=== PATIENT | male | born 1970 | race Caucasian/White ===

== ENCOUNTER → 2018-11-27 | Outpatient (CLI) | payer OTHER ==
--- NOTE | 2018-11-27 08:57 | US ---
EXAMINATION TYPE: US abdomen complete DATE OF EXAM: 11/27/2018 COMPARISON: NONE CLINICAL HISTORY: R10.13 Epigastric pain. Patient denies epigastric pain, rather c/o ventral abdomina l outpouching with head elevation and chin down maneuver as if getting ready to sit upright (possible ventral hernia)?; fatty liver per patient as takes cholesterol lowering med. and antihypertensive me dications. EXAM MEASUREMENTS: Liver Length: 15.1 cm Gallbladder Wall: 0.2 cm CBD: 0.4 cm Spleen: 9.3 cm Right Kidney: 10.2 x 4.9 x 4.0 cm Left Kidney: 10.3 x 6.8 x 5.0 cm Pancreas: Tail obscured by overlying bowel gas Liver: fatty as is hyperechoic to right renal cortex, attenuated posteriorly, and both fatty focal s paring seen at gallbladder fossa = 0.5 x 0.9 x 0.6cm. Gallbladder: wnl Evidence for sonographic Ugalde's sign: no CBD: wnl Spleen: wnl Right Kidney: No hydronephrosis or masses seen Left Kidney: No hydronephrosis or masses seen Upper IVC: wnl Abd Aorta: wnl Ventral abdominal wall: no disruption is noted of abdominal wall fascia in neutral or in head up posi tion where patient notes mid and lower abdominal outpouching. IMPRESSION: 1. Sonographic findings most compatible with hepatic steatosis overall appearing moderate in degree w ith probable focal fatty sparing near the gallbladder fossa. 2. At the patient's indicated area of concern no discrete fascial disruption is seen to indicate vent ral hernia. CT with Valsalva could be performed for confirmation if there is further clinical concern .
== END | disposition home or self-care (01) ==
LOC: RADUSWWP 07:45
PROVIDERS: ATTEND Family Medicine
DX: R10.13 Epigastric pain (principal)
CPT/HCPCS: 76700

== ENCOUNTER → 2018-12-30 | Day surgery (SDC) | payer OTHER ==
[2018-12-26 14:23] VITALS: BMI 31.1
[~2018-12-30] MED LIST: LACTATED RINGERS 1,000 ML IV SCH; LIDOCAINE 1% 20 ML VIAL (10MG/ML) FOR IV START INTRADERMA PRN; LIDOCAINE 1% INJ 10MG/ML (20 ML MDV) ONE; PROPOFOL 10 MG/ML 20 ML VIAL IV ONE
[2018-12-30 11:28] VITALS: TEMP 97.1
--- NOTE | 2018-12-30 11:42 | P.GSHP ---
History of Present Illness H&P Date: 12/30/18 Chief Complaint: GERD, screening colonoscopy This is a 48-year-old male who presents today for EGD and screening colonoscopy. Patient has had issues with GERD. He has been taking antireflux medications for several years. He's had some mild dysphagia. He's never had a colonoscopy. Past Medical History Past Medical History: GERD/Reflux, Hyperlipidemia, Hypertension History of Any Multi-Drug Resistant Organisms: None Reported Additional Past Surgical History / Comment(s): EGD Past Anesthesia/Blood Transfusion Reactions: No Reported Reaction Smoking Status: Former smoker - Past Family History Mother Family Medical History: Cancer Father Family Medical History: Cancer Medications and Allergies Home Medications Medication Instructions Recorded Confirmed Type Aspirin [Adult Low Dose Aspirin EC] 81 mg PO DAILY 12/26/18 12/26/18 History Esomeprazole Magnesium [NexIUM] 20 mg PO DAILY 12/26/18 12/30/18 History Losartan Potassium 100 mg PO HS 12/26/18 12/30/18 History Metoprolol.. 25 mg PO DAILY 12/26/18 12/30/18 History Simvastatin [Zocor] 40 mg PO HS 12/26/18 12/30/18 History Allergies Allergy/AdvReac Type Severity Reaction Status Date / Time chicken derived Allergy Anaphylaxis Verified 12/26/18 14:16 levofloxacin [From Levaquin] Allergy Rash/Hives Verified 12/26/18 14:16 Poultry [[place]] Allergy Anaphylaxis Verified 12/26/18 14:16 Surgical - Exam Vital Signs Temp Pulse Resp BP Pulse Ox 97.1 F L 83 16 158/93 94 L 12/30/18 11:27 12/30/18 11:27 12/30/18 11:27 12/30/18 11:27 12/30/18 11:27 - General well developed, well nourished, no distress - Eyes PERRL - ENT normal pinna - Neck no masses - Respiratory normal expansion - Cardiovascular Rhythm: regular - Abdomen Abdomen: soft, non tender Assessment and Plan Assessment: GERD. We'll perform EGD. We'll also perform screening colonoscopy.
--- NOTE | 2018-12-30 11:54 | P.OP ---
Date of Procedure: 12/30/18 Preoperative Diagnosis: . GERD Screening colonoscopy Postoperative Diagnosis: Antral gastritis Small hiatal hernia Mild esophagitis Procedure(s) Performed: EGD Colonoscopy Anesthesia: MAC Surgeon: Didier Castillo Pathology: other (Antrum, esophagus) Condition: stable Disposition: PACU Description of Procedure: The patient's placed on the endoscopy table lateral position. He received IV sedation. The gastroscope placed oropharynx passed in the esophagus into the stomach. Scope then placed through the pylorus. The first and second portion of the duodenum appeared normal. Scope was then brought back the antrum and this appeared mildly inflamed. A biopsies performed. The scope was unretr oflexed and remainder stomach appeared normal. There was a small hiatal hernia. The GE junction was at 38 cm. The distal esophagus appeared mildly inflamed. There is no evidence of any inflammatory webs or strictures. The distal esophagus was biopsied. The proximal esophagus appeared normal. Scope was withdrawn for patient. Next digital rectal exam was performed. Digital rectal examination was performed which revealed no abnormalities. The prostate was symmetrical without nodules. Flexible colonoscope was then placed in the patient's anus and passed throughout the entire colon. The ileocecal valve was visualized. The cecum, ascending, transverse, descending and sigmoid colon were normal. The rectum was normal as well. There were no masses, polyps or diverticula noted in the entire colon.
[2018-12-30 12:33] VITALS: BP 118/84; PULSE 82; RESP 18
--- NOTE | 2018-12-30 14:56 | NM ---
EXAMINATION TYPE: NM hepatobiliary w CCK DATE OF EXAM: 12/30/2018 COMPARISON: Ultrasound abdomen 11/27/2018 HISTORY: Indigestion, gastroesophageal reflux disease, epigastric pain TECHNIQUE: After the intravenous administration of 4.4 mCi Tc 99m Mebrofenin hepatobiliary scintigrap hy is performed. Immediate images post injection. FINDINGS: There is satisfactory initial accumulation of tracer by the liver. The gallbladder is visualized wit hin 10 minutes. The small bowel activity is noted on delayed images. At one hour CCK was administer ed, patient was injected with 1.9 mcg of Kinevac, and gallbladder ejection fraction is calculated at 91 %, above the upper limit of normal range. Therefore there is no scintigraphic evidence of cystic or common bile duct obstruction to suggest acute cholecystitis or gallbladder dyskinesia. IMPRESSION: Findings could represent hyperkinesis of the gallbladder
== END | disposition home or self-care (01) ==
LOC: ORWHC2ENDO 11:08
PROVIDERS: ATTEND Surgery
DX: Z12.11 Encounter for screening for malignant neoplasm of colon (principal); K29.50 Unspecified chronic gastritis without bleeding; K20.0 Eosinophilic esophagitis; K44.9 Diaphragmatic hernia without obstruction or gangrene; K21.9 Gastro-esophageal reflux disease without esophagitis; I10 Essential (primary) hypertension; E78.5 Hyperlipidemia, unspecified; Z87.891 Personal history of nicotine dependence; Z79.82 Long term (current) use of aspirin; Z79.899 Other long term (current) drug therapy; Z88.1 Allergy status to other antibiotic agents; Z91.018 Allergy to other foods
CPT/HCPCS: 88305; 78227; 43239; A9537; J2805; J2001; J2704; G0121

== ENCOUNTER → 2019-01-07 | Outpatient (CLI) | payer OTHER ==
[2019-01-07 18:14] LABS: Basophils # (A) 0.1 k/uL (0-0.2); Basophils % (A) 1 %; Eosinophils # (A) 0.2 k/uL (0-0.7); Eosinophils % (A) 2 %; HCT 42.2 % (39.0-53.0); HGB 14.5 gm/dL (13.0-17.5); Lymphocytes # (A) 2.8 k/uL (1.0-4.8); Lymphocytes % (A) 30 %; MCHC 34.3 g/dL (31.0-37.0); MCV 84.5 fL (80.0-100.0); Monocytes # (A) 0.6 k/uL (0-1.0); Monocytes % (A) 6 %; Neutrophils # (A) 5.5 k/uL (1.3-7.7); Neutrophils % (A) 59 %; Platelet Count 220 k/uL (150-450); RBC 4.99 m/uL (4.30-5.90); RDW 13.8 % (11.5-15.5); WBC 9.4 k/uL (3.8-10.6)
== END | disposition home or self-care (01) ==
LOC: LABPAT 17:08
PROVIDERS: ATTEND Surgery
DX: Z01.818 Encounter for other preprocedural examination (principal); Z01.812 Encounter for preprocedural laboratory examination; K21.0 Gastro-esophageal reflux disease with esophagitis; D64.9 Anemia, unspecified
CPT/HCPCS: 85025; 86850; 86900; 86901; 93005

== ENCOUNTER 2019-01-16 07:53 | Observation (INO) | payer OTHER ==
[2019-01-07 18:14] LABS: Basophils # (A) 0.1 k/uL (0-0.2); Basophils % (A) 1 %; Eosinophils # (A) 0.2 k/uL (0-0.7); Eosinophils % (A) 2 %; HCT 42.2 % (39.0-53.0); HGB 14.5 gm/dL (13.0-17.5); Lymphocytes # (A) 2.8 k/uL (1.0-4.8); Lymphocytes % (A) 30 %; MCHC 34.3 g/dL (31.0-37.0); MCV 84.5 fL (80.0-100.0); Monocytes # (A) 0.6 k/uL (0-1.0); Monocytes % (A) 6 %; Neutrophils # (A) 5.5 k/uL (1.3-7.7); Neutrophils % (A) 59 %; Platelet Count 220 k/uL (150-450); RBC 4.99 m/uL (4.30-5.90); RDW 13.8 % (11.5-15.5); WBC 9.4 k/uL (3.8-10.6)
[~2019-01-16 07:53] MED LIST changes: +DEXAMETHASONE SOD PHOSPHATE 10 MG/ML 1 ML VIAL IV ONE; +HEPARIN SODIUM,PORCINE 5,000 UNIT/ML 1 ML VIAL SQ ONE; -LACTATED RINGERS 1,000 ML IV SCH; -LIDOCAINE 1% INJ 10MG/ML (20 ML MDV) ONE; +MIDAZOLAM 2 MG/2 ML VIAL IV PRN; +ONDANSETRON 4 MG/2 ML VIAL IVP ONE; -PROPOFOL 10 MG/ML 20 ML VIAL IV ONE; +SCOPOLAMINE 1.5MG/72HR PATCH TRANSDERM ONE; +ceFAZolin IN SWFI 2 GM/20 ML SYRINGE IVP ONE
[2019-01-16] MEDS: LACTATED RINGERS 1,000 ML IV SCH (08:53)
--- NOTE | 2019-01-16 10:06 | P.GSHP ---
History of Present Illness H&P Date: 01/16/19 Chief Complaint: GERD, right quadrant pain This is a 48-year-old male sex points of GERD. Patient also second with her quadrant pain. His recent HIDA scan shows abnormal ejection fraction consistent with chronic cholecystitis.The patient has had long-standing problems with reflux esophagitis. The patient underwent recent EGD is found have evidence of esophagitis. Patient has been well informed on the procedure of laparoscopic Aashish fundoplication. The patient is aware the risk of the conversion to the open procedure, risk of injury to the stomach, liver and spleen. The patient is also a risk of recurrent GERD and dysphagia symptoms. The patient understands there is a postoperative diet of full liquids for 2 weeks after surgery. Patient will undergo laparoscopic Aashish fundoplication and laparoscopic cholecystectomy today. Past Medical History Past Medical History: GERD/Reflux, Hyperlipidemia, Hypertension Additional Past Medical History / Comment(s): hiatal hernia, History of Any Multi-Drug Resistant Organisms: None Reported Additional Past Surgical History / Comment(s): Colonoscopy, EGD Past Anesthesia/Blood Transfusion Reactions: No Reported Reaction Past Psychological History: No Psychological Hx Reported Smoking Status: Former smoker Past Alcohol Use History: Occasional Additional Past Alcohol Use History / Comment(s): QUIT SMOKING 2002, smoked for 10 yrs, 1 pack/week Past Drug Use History: None Reported - Past Family History Mother Family Medical History: Cancer Father Family Medical History: Cancer Medications and Allergies Home Medications Medication Instructions Recorded Confirmed Type Aspirin [Adult Low Dose Aspirin EC] 81 mg PO DAILY 12/26/18 01/09/19 History Esomeprazole Magnesium [NexIUM] 20 mg PO DAILY 12/26/18 01/09/19 History Losartan Potassium 100 mg PO HS 12/26/18 01/09/19 History Simvastatin [Zocor] 40 mg PO HS 12/26/18 01/09/19 History Metoprolol Tartrate 25 mg PO QA 01/09/19 01/09/19 History [place]-3 Fatty Acids [[place]-3] 1,000 mg PO DAILY 01/09/19 01/09/19 History Allergies Allergy/AdvReac Type Severity Reaction Status Date / Time chicken derived Allergy Anaphylaxis Verified 01/09/19 15:43 levofloxacin [From Levaquin] Allergy Rash/Hives Verified 01/09/19 15:43 Poultry [[place]] Allergy Anaphylaxis Verified 01/09/19 15:43 Surgical - Exam Vital Signs Temp Pulse Resp BP Pulse Ox 97.1 F L 58 L 18 145/83 96 01/16/19 08:51 01/16/19 08:51 01/16/19 08:51 01/16/19 08:51 01/16/19 08:51 - General well developed, well nourished, no distress - Eyes PERRL - ENT normal pinna - Neck no masses - Respiratory normal expansion - Cardiovascular Rhythm: regular - Abdomen Abdomen: soft, non tender Results - Labs 01/07/19 17:38 - Imaging Additional studies: HIDA scan, elevated ejection fraction 91% Assessment and Plan Assessment: GERD Dysfunction We will perform laparoscopic dislocation and laparoscopic cholecystectomy.
[2019-01-16] MEDS ORDERED: SUCCINYLCHOLINE CHLORIDE 100 MG/5 ML SYR IV ONE (10:23)
[2019-01-16] MEDS ORDERED: LIDOCAINE 1% INJ 10MG/ML (20 ML MDV) ONE (10:23)
[2019-01-16] MEDS ORDERED: fentaNYL (PF) 50 MCG/ML 2 ML AMP ONE (10:23)
[2019-01-16] MEDS ORDERED: PROPOFOL 10 MG/ML 20 ML VIAL IV ONE (10:23)
[2019-01-16] MEDS ORDERED: ePHEDrine SULFATE/0.9% NACL/PF 50 MG/5 ML SYRINGE IV ONE (10:23)
[2019-01-16] MEDS ORDERED: MIDAZOLAM 2 MG/2 ML VIAL ONE (10:23)
[2019-01-16] MEDS ORDERED: GLYCOPYRROLATE 0.2 MG/ML 2 ML VIAL ONE (10:23)
[2019-01-16] MEDS ORDERED: NEOSTIGMINE 1 MG/ML 10 ML VIAL ONE (10:23)
[2019-01-16] MEDS ORDERED: ROCURONIUM BROMIDE 10 MG/ML 10 ML VIAL IV ONE (10:23)
[2019-01-16] MEDS ORDERED: KETOROLAC 30 MG/ML 1 ML VIAL ONE (10:23)
[2019-01-16] MEDS ORDERED: BUPIVACAIN-EPI 0.25%-1:200,000 30 ML VIAL SQ ONE (10:55)
[2019-01-16] MEDS ORDERED: LACTATED RINGERS 1,000 ML IV ONE (11:34)
--- NOTE | 2019-01-16 11:40 | P.OP ---
Date of Procedure: 01/16/19 Preoperative Diagnosis: Cholecystitis GERD Postoperative Diagnosis: Cholecystitis GERD Procedure(s) Performed: Have her scalp in this location Laparoscopic cholecystectomy Anesthesia: ROSIO Surgeon: Didier Castillo Estimated Blood Loss (ml): 10 Pathology: other (Gallbladder) Condition: stable Disposition: PACU Description of Procedure: Em patient was placed on the operating table in the supine position. The patient received general anesthesia. And was placed in dorsal lithotomy position. The patient was prepped and draped in the usual sterile fashion. The skin incision sites were anesthetized with 1% local Xylocaine. The skin was incised in the left periumbilical area and then using a blade less 5 mm trocar under direct visualization panel cavity was entered. After adequate insufflation the laparoscope was then placed into the peritoneal cavity. Next a 5 mm trochars placed in the right epigastric position. Another 5 millimeter trocar the right lateral position. Another 5 millimeter trocar in the left lateral position a 5 mm trocar is placed in the left epigastric position. And then the initial 5 mm trocar was exchanged for a 10 mm trocar. The left lateral lobe liver was retracted. The hernia was seen. The crural defect was then dissected using the Harmonic scissors device. A 360 crural dissection was performed the esophagus stomach was reduced back into the peritoneal Cavity. The crural defect was then closed using 2-0 Ethibond suture. Next the fundus of the stomach was mobilized using the Supai scissors device. and then a 58- American bougie dilator was placed oropharynx passed into the esophagus and stomach the fundal plication wrap was then performed by grasping the fundus posteriorly and bringing it around the esophagus and stomach fundoplication was then performed using 2-0 Ethibond suture. Care was taken that the fundal location rested over top of the intra-abdominal esophagus. There was no injury seen to the stomach or esophagus. The dilator was then withdrawn. The abdomen was irrigated there is no bleeding seen. . A 8 mm trocar was placed in the epigastric position. A 5 mm trocar was placed in the right periumbilical area. Patient placed in the right side up had up position. The gallbladder was grasped in the fundus and infundibulum. Traction on the gallbladder was placed in the lateral and the cephalad positions. The triangle of Calot was visualized.. The cystic duct was bluntly dissected until the union of the cystic duct and common bile duct was seen. A critical view of safety was achieved. The cystic duct was then divided and sealed with the Harmonic scissors. A PDS Endoloop was then placed throughout the cystic duct stump. The cystic artery divided and sealed with the Harmonic scissors. The gallbladder was then removed from the liver bed using Harmonic scissors. The gallbladder was then extracted through the epigastric port site. Operative field was checked for any bleeding spots and Harmonic scissors was used to coagulate the liver bed. The abdomen was irrigated. The trocars were removed. The trochars were then withdrawn and then skin incision sites were closed using 3-0 Monocryl suture Steri-Strips are applied. Patient thought procedure well and sent to recovery room in stable condition.en
[2019-01-16] MEDS: HYDROmorphone 0.5 MG/0.5 ML SYRINGE IVP PRN ×3 (12:10→12:41)
[2019-01-16 13:14] VITALS: BMI 31.1
--- NOTE | 2019-01-16 16:02 | FL ---
EXAMINATION TYPE: FL esophagus cervic/pharynx DATE OF EXAM: 01/16/2019 CLINICAL HISTORY: Status post Aashish fundoplication. Postoperative evaluation. TECHNIQUE: Limited esophagram is performed utilizing 40 oz of Isovue-370. A total of 1.15 minutes of fluoroscopic time was utilized during procedure. 16 fluoroscopic images were saved. FINDINGS: The patient swallowed contrast without difficulty or delay. Esophageal peristalsis and mo tility are within normal limits. There is moderate to severe delayed flow of contrast along the diaph ragmatic hiatus into the stomach, there is no evidence of contrast extravasation to suggest leak. No persistent hiatal hernia is seen. Patient remains asymptomatic. IMPRESSION: Moderate to severe obstruction at the gastroesophageal junction. No evidence of leak stat us post Ramakrishna fundoplication surgery earlier today.
[2019-01-16] MEDS: D5-0.45% NACL WITH KCL 20MEQ/L 1,000 ML IV SCH ×2 (16:23→23:08)
[2019-01-16] MEDS: ONDANSETRON 4 MG/2 ML VIAL IVP PRN (16:33)
[2019-01-16] MEDS: HYDROmorphone 1 MG/ML 1 ML SYRINGE IVP PRN (16:33)
[2019-01-16] MEDS: DEXAMETHASONE SOD PHOSPHATE 10 MG/ML 1 ML VIAL IV SCH ×2 (17:35→23:08)
[2019-01-17] MEDS: HYDROmorphone 1 MG/ML 1 ML SYRINGE IVP PRN (02:53)
[2019-01-17] MEDS: ONDANSETRON 4 MG/2 ML VIAL IVP PRN (02:55)
[2019-01-17] MEDS: D5-0.45% NACL WITH KCL 20MEQ/L 1,000 ML IV SCH (02:56)
[2019-01-17] MEDS: DEXAMETHASONE SOD PHOSPHATE 10 MG/ML 1 ML VIAL IV SCH (05:28)
[2019-01-17] MEDS: LACTATED RINGERS 1,000 ML IV SCH (05:29)
[2019-01-17 07:34] VITALS: BP 117/70; PULSE 106; RESP 16; TEMP 97.5
[2019-01-17] MEDS ORDERED: HYDROcodone/APAP 5-325MG 1 EACH TAB PO PRN (08:21)
[2019-01-17] MEDS ORDERED: ENOXAPARIN 40 MG/0.4 ML SYRINGE SQ SCH (09:00)
--- NOTE | 2019-01-17 13:53 | P.DS ---
Providers Date of admission: 01/16/19 20:54 Expected date of discharge: 01/17/19 Attending physician: Didier Castillo Primary care physician: Cook Hospital Course: 48-year-old male who underwent laparoscopic cholecystectomy and Aashish fundoplication on 01/16/[address] Castillo. Patient is doing well postoperatively without any immediate complications. Patient is tolerating liquid diet without difficulty. Pain is controlled on oral medications. Vital signs stable. Patient was deemed stable for discharge home today. He is to follow up on an outpatient basis. Patient verbalized understanding of 2 week full liquid diet. Please see EMR for further hospital course details. Discharge diagnosis 1. GERD, status post laparoscopic Aashish fundoplication 2. Cholecystitis, status post laparoscopic cholecystectomy Nurse practitioner note has been reviewed by physician. Signing provider agrees with the documented findings, assessment, and plan of care. Plan - Discharge Summary Discharge Rx Participant: No New Discharge Prescriptions: New Hydrocodone/Acetaminophen [[place] 5-325] 1 tab PO Q6HR PRN 3 Days #12 tab PRN Reason: Pain No Action Simvastatin [Zocor] 40 mg PO HS Esomeprazole Magnesium [NexIUM] 20 mg PO DAILY Losartan Potassium 100 mg PO HS Aspirin [Adult Low Dose Aspirin EC] 81 mg PO DAILY Metoprolol Tartrate 25 mg PO QAM [place]-3 Fatty Acids [[place]-3] 1,000 mg PO DAILY Discharge Medication List Aspirin [Adult Low Dose Aspirin EC] 81 mg PO DAILY 12/26/18 [History] Esomeprazole Magnesium [NexIUM] 20 mg PO DAILY 12/26/18 [History] Losartan Potassium 100 mg PO HS 12/26/18 [History] Simvastatin [Zocor] 40 mg PO HS 12/26/18 [History] Metoprolol Tartrate 25 mg PO QAM 01/09/19 [History] [place]-3 Fatty Acids [[place]-3] 1,000 mg PO DAILY 01/09/19 [History] Hydrocodone/Acetaminophen [[place] 5-325] 1 tab PO Q6HR PRN 3 Days #12 tab 01/17/19 [Rx] Follow up Appointment(s)/Referral(s): Didier Castillo MD [STAFF PHYSICIAN] - 01/30/19 2:15 pm Patient Instructions/Handouts: *[facility] - Laparoscopic Cholecystectomy Discharge Instructions, *Sur[facility] - ([facility]) Lap Aashish Fundiplication Post-Op Instructions Activity/Diet/Wound Care/Special Instructions: No driving while taking [place] No lifting over 10 pounds You may shower. No soaking or tub baths Very light activity until you are reevaluated at your follow up appointment with your surgeon Full liquid diet for two weeks Discharge Disposition: HOME SELF-CARE
== END 2019-01-17 10:39 | disposition home or self-care (01) ==
LOC: OR 07:53 → 4SSUR 11:46 → OR 21:17
PROVIDERS: ADMIT Surgery; ATTEND Surgery
DX: K21.0 Gastro-esophageal reflux disease with esophagitis (principal); K81.1 Chronic cholecystitis; I10 Essential (primary) hypertension; K44.9 Diaphragmatic hernia without obstruction or gangrene; E78.5 Hyperlipidemia, unspecified; Z87.891 Personal history of nicotine dependence; Z79.82 Long term (current) use of aspirin; Z79.899 Other long term (current) drug therapy; Z88.1 Allergy status to other antibiotic agents; Z91.018 Allergy to other foods; Z80.9 Family history of malignant neoplasm, unspecified
CPT/HCPCS: 43280; 47562; 96372; 86900; 86901; 88304; 85025; 86850; 74210; 93005; G0378 ×2; J2250; J1644; J1100 ×2; J2710; J2405 ×2; J2001; J1650; J3010; J1885; J1170 ×3; J0330; J2704; J0690; Q9967

== ENCOUNTER 2019-11-30 12:58 | Emergency (ER) | payer OTHER ==
[2019-11-30] MEDS ORDERED: ONDANSETRON 4 MG/2 ML VIAL IVP STA (13:26)
[2019-11-30] MEDS ORDERED: KETOROLAC 30 MG/ML 1 ML VIAL IVP STA (13:26)
[2019-11-30] MEDS ORDERED: SODIUM CHLORIDE 0.9% 2,000 ML IV STA (13:26)
[2019-11-30 13:49] LABS: Basophils % (A) 0 %; Eosinophils # (A) 0.1 k/uL (0-0.7); Eosinophils % (A) 1 %; HCT 46.1 % (39.0-53.0); HGB 15.9 gm/dL (13.0-17.5); Hyperchromasia Slight; Lymphocytes % (A) 9 %; MCH 29.4 pg (25.0-35.0); MCHC 34.5 g/dL (31.0-37.0); MCV 85.1 fL (80.0-100.0); Mean Platelet Volume 8.3; Monocytes # (A) 0.5 k/uL (0-1.0); Monocytes % (A) 4 %; Neutrophils # (A) 9.4 k/uL (1.3-7.7); Neutrophils % (A) 86 %; Platelet Count 172 k/uL (150-450); RBC 5.41 m/uL (4.30-5.90); RDW 12.3 % (11.5-15.5)
[2019-11-30 14:05] LABS: ALT 28 U/L (4-49); AST 32 U/L (17-59); African American GFR (CKD) >90 (>60 ml/min/1.73 sqM); Albumin 4.4 g/dL (3.5-5.0); Alkaline Phosphatase 86 U/L (38-126); Amylase 46 U/L (30-110); Anion Gap 8 mmol/L; Blood Urea Nitrogen 18 mg/dL (9-20); Calcium 9.5 mg/dL (8.4-10.2); Carbon Dioxide 23 mmol/L (22-30); Chloride 107 mmol/L (98-107); Glucose 169 mg/dL (74-99); Non-African American GFR(CKD) 85 (>60 ml/min/1.73 sqM); Potassium 4.5 mmol/L (3.5-5.1); Sodium 138 mmol/L (137-145); Total Bilirubin 0.9 mg/dL (0.2-1.3); Total Protein 7.1 g/dL (6.3-8.2)
--- NOTE | 2019-11-30 14:17 | CT ---
EXAMINATION TYPE: CT abdomen pelvis wo con DATE OF EXAM: 11/30/2019 COMPARISON: None HISTORY: Left sided flank pain with urination changes. CT DLP: 758.9 mGycm Examination of the solid and hollow viscera is limited given the lack of contrast. FINDINGS: LUNG BASES: No evidence for nodule. No evidence for infiltrate. LIVER/GB: Cholecystectomy clips are noted. No space-occupying hepatic lesion. PANCREAS: No pancreatic mass identified. No inflammatory process seen. SPLEEN: No evidence for splenomegaly. No intrasplenic lesions seen. ADRENALS: No adrenal nodules identified. No evidence for thickening. KIDNEYS: 4.5 mm calculus proximal left ureter just distal to the UPJ resulting in mild left-sided hyd ronephrosis. Mild perinephric stranding noted. No additional nephrolithiasis identified bilaterally. No renal masses seen. BOWEL: Small hiatal hernia noted. Appendix has a normal appearance. No evidence of bowel obstruction. No inflammatory process. Lymph nodes: No evidence for adenopathy greater than 1 cm. Abdominal aorta: Atheromatous changes seen. No evidence for aneurysm. Genital organs: No significant abnormality. Other: No significant abnormality. IMPRESSION: 4.5 mm calculus proximal left ureter just distal to the UPJ resulting in mild left-sided hydronephros is.
[2019-11-30] MEDS ORDERED: TAMSULOSIN 0.4 MG CAP.ER.24H PO STA (14:31)
--- NOTE | 2019-11-30 14:49 | ED ---
Abdominal Pain HPI - General Chief Complaint: Abdominal Pain Stated Complaint: Kidney Stones Time Seen by Provider: 11/30/19 13:18 Source: patient, RN notes reviewed Mode of arrival: ambulatory Limitations: no limitations - History of Present Illness Initial Comments: This a 49-year-old male presents emergency Department chief complaint of severe left flank pain. Patient states the pain wraps around to his abdomen. This was a sudden onset of pain he does admit to slight nausea no vomiting no diarrhea no constipation . Patient states he did a telemedicine visit this morning and he told him that he most likely has a kidney stone and he should proceed to the emergency department. Patient denies any chest pain, shortness breath, fever or chills no dysuria. Nothing really makes the pain feel better or worse. - Related Data Home Medications Medication Instructions Recorded Confirmed Aspirin [Adult Low Dose Aspirin EC] 81 mg PO DAILY 12/26/18 01/16/19 Esomeprazole Magnesium [NexIUM] 20 mg PO DAILY 12/26/18 01/16/19 Losartan Potassium 100 mg PO HS 12/26/18 01/16/19 Simvastatin [Zocor] 40 mg PO HS 12/26/18 01/16/19 Metoprolol Tartrate 25 mg PO QAM 01/09/19 01/16/19 [place]-3 Fatty Acids [[place]-3] 1,000 mg PO DAILY 01/09/19 01/16/19 Previous Rx's Medication Instructions Recorded Hydrocodone/Acetaminophen [[place] 1 tab PO Q6HR PRN 3 Days #12 tab 01/17/19 5-325] Ketorolac [Toradol] 10 mg PO Q8HR #15 tab 11/30/19 Ondansetron Odt [Zofran Odt] 4 mg PO Q8HR PRN #10 tab 11/30/19 Tamsulosin [Flomax] 0.4 mg PO DAILY #7 cap 11/30/19 Allergies Allergy/AdvReac Type Severity Reaction Status Date / Time chicken derived Allergy Anaphylaxis Verified 11/30/19 13:06 levofloxacin [From Levaquin] Allergy Rash/Hives Verified 11/30/19 13:06 Poultry [[place]] Allergy Anaphylaxis Verified 11/30/19 13:06 Review of Systems ROS Statement: Those systems with pertinent positive or pertinent negative responses have been documented in the HPI. ROS Other: All systems not noted in ROS Statement are negative. Past Medical History Past Medical History: GERD/Reflux, Hyperlipidemia, Hypertension Additional Past Medical History / Comment(s): hiatal hernia, kidney stones History of Any Multi-Drug Resistant Organisms: None Reported Additional Past Surgical History / Comment(s): Colonoscopy, EGD Past Anesthesia/Blood Transfusion Reactions: No Reported Reaction Past Psychological History: No Psychological Hx Reported Smoking Status: Former smoker Past Alcohol Use History: Occasional Past Drug Use History: None Reported - Past Family History Mother Family Medical History: Cancer Father Family Medical History: Cancer General Exam Limitations: no limitations General appearance: alert, in no apparent distress Head exam: Present: atraumatic, normocephalic, normal inspection Eye exam: Present: normal appearance, PERRL, EOMI. Absent: scleral icterus, conjunctival injection, periorbital swelling ENT exam: Present: normal exam, normal oropharynx, mucous membranes moist, TM's normal bilaterally Neck exam: Present: normal inspection, full ROM. Absent: tenderness, m eningismus, lymphadenopathy Respiratory exam: Present: normal lung sounds bilaterally. Absent: respiratory distress, wheezes, rales, rhonchi, stridor Cardiovascular Exam: Present: regular rate, normal rhythm, normal heart sounds. Absent: systolic murmur, diastolic murmur, rubs, gallop, clicks GI/Abdominal exam: Present: soft, normal bowel sounds. Absent: distended, tenderness, guarding, rebound, rigid Back exam: Present: CVA tenderness (L). Absent: CVA tenderness (R) Neurological exam: Present: alert, oriented X3, CN II-XII intact Skin exam: Present: warm, dry, intact, normal color. Absent: rash Course Vital Signs 11/30/19 13:06 Temperature 97.4 F L Pulse Rate 63 Respiratory 18 Rate Blood Pressure 168/83 O2 Sat by Pulse 99 Oximetry Medical Decision Making - Medical Decision Making 49-year-old male presented for left flank pain. Patient's found to have 4.5 mm UVJ stone. Patient pain improved after Toradol, fluids and Zofran. Patient discharged with Flomax, Toradol, Zofran, codeine. Return parameters were di scussed. - Lab Data Result diagrams: 11/30/19 13:37 11/30/19 13:37 Lab Results 04/12/20 04/12/20 04/12/20 Range/Units 13:37 13:37 14:45 WBC 11.0 H (3.8-10.6) k/uL RBC 5.41 (4.30-5.90) m/uL Hgb 15.9 (13.0-17.5) gm/dL Hct 46.1 (39.0-53.0) % MCV 85.1 (80.0-100.0) fL MCH 29.4 (25.0-35.0) pg MCHC 34.5 (31.0-37.0) g/dL RDW 12.3 (11.5-15.5) % Plt Count 172 (150-450) k/uL Neutrophils % 86 % Lymphocytes % 9 % Monocytes % 4 % Eosinophils % 1 % Basophils % 0 % Neutrophils # 9.4 H (1.3-7.7) k/uL Lymphocytes # 1.0 (1.0-4.8) k/uL Monocytes # 0.5 (0-1.0) k/uL Eosinophils # 0.1 (0-0.7) k/uL Basophils # 0.0 (0-0.2) k/uL Hyperchromasia Slight Sodium 138 (137-145) mmol/L Potassium 4.5 (3.5-5.1) mmol/L Chloride 107 (98-107) mmol/L Carbon Dioxide 23 (22-30) mmol/L Anion Gap 8 mmol/L BUN 18 (9-20) mg/dL Creatinine 1.02 (0.66-1.25) mg/dL Est GFR (CKD-EPI)AfAm >90 (>60 ml/min/1.73 sqM) Est GFR (CKD-EPI)NonAf 85 (>60 ml/min/1.73 sqM) Glucose 169 H (74-99) mg/dL Calcium 9.5 (8.4-10.2) mg/dL Total Bilirubin 0.9 (0.2-1.3) mg/dL AST 32 (17-59) U/L ALT 28 (4-49) U/L Alkaline Phosphatase 86 (38-126) U/L Total Protein 7.1 (6.3-8.2) g/dL Albumin 4.4 (3.5-5.0) g/dL Amylase 46 (30-110) U/L Lipase 97 (23-300) U/L Urine Color Yellow Urine Appearance Cloudy (Clear) Urine pH 6.0 (5.0-8.0) Ur Specific [place] 1.023 (1.001-1.035) Urine Protein 1+ H (Negative) Urine Glucose (UA) Negative (Negative) Urine Ketones 2+ H (Negative) Urine Blood Large H (Negative) Urine Nitrite Negative (Negative) Urine Bilirubin Negative (Negative) Urine Urobilinogen <2.0 (<2.0) mg/dL Ur Leukocyte Esterase Negative (Negative) Urine RBC >182 H (0-5) /hpf Urine WBC 1 (0-5) /hpf Ur Squamous Epith Cells 1 (0-4) /hpf Urine Bacteria Rare H (None) /hpf Urine Mucus Many H (None) /hpf Disposition Clinical Impression: Left ureteral calculus Disposition: HOME SELF-CARE Condition: Stable Instructions (If sedation given, give patient instructions): Kidney Stones (ED) Additional Instructions: Please return to the Emergency Department if symptoms worsen or any other concerns. Prescriptions: Tamsulosin [Flomax] 0.4 mg PO DAILY #7 cap Ketorolac [Toradol] 10 mg PO Q8HR #15 tab Ondansetron Odt [Zofran Odt] 4 mg PO Q8HR PRN #10 tab PRN Reason: Nausea Is patient prescribed a controlled substance at d/c from ED?: No Referrals: Roger Fine DO [Primary Care Provider] - 1-2 days Raudel Ma MD [STAFF PHYSICIAN] - 1-2 days Time of Disposition: 15:28
[2019-11-30 14:58] LABS: Appearance,Urine Cloudy (Clear); Bacteria,Urine Rare /hpf; Bilirubin,Urine Negative (Negative); Blood,Urine Large (Negative); Color,Urine Yellow; Glucose,Urine (UA) Negative (Negative); Ketones,Urine 2+ (Negative); Leukocyte Esterase,Urine Negative (Negative); Mucus,Urine Many /hpf; Nitrite,Urine Negative (Negative); Protein,Urine 1+ (Negative); RBC,Urine >182 /hpf (0-5); Specific Gravity,Urine 1.023 (1.001-1.035); Squamous Epithelial Cell,Urine 1 /hpf (0-4); Urobilinogen,Urine <2.0 mg/dL (<2.0); WBC,Urine 1 /hpf (0-5)
[2019-11-30] MEDS ORDERED: ACET/COD 300 MG/30 MG STARTER PACK 6 TAB BTL PO STA (15:27)
[2019-11-30 15:39] VITALS: BP 159/80; PULSE 74; RESP 16; TEMP 98
== END 2019-11-30 15:38 | disposition home or self-care (01) ==
LOC: EC 12:58
DX: N13.2 Hydronephrosis with renal and ureteral calculous obstruction (principal); I10 Essential (primary) hypertension; E78.5 Hyperlipidemia, unspecified; K21.9 Gastro-esophageal reflux disease without esophagitis; Z79.82 Long term (current) use of aspirin; Z79.899 Other long term (current) drug therapy; Z91.018 Allergy to other foods; Z88.1 Allergy status to other antibiotic agents; Z87.891 Personal history of nicotine dependence
CPT/HCPCS: 36415; 80053; 82150; 83690; 85025; 81001; 74176; 99284; 96374; 96375; 96361 ×2; J2405; J1885

== ENCOUNTER 2020-04-13 16:44 | Emergency (ER) | payer OTHER ==
[2020-04-13 16:52] VITALS: RESP 18; TEMP 97.9
[2020-04-13] MEDS ORDERED: MORPHINE SULFATE 4 MG/ML SYRINGE IV STA (17:02)
[2020-04-13] MEDS ORDERED: SODIUM CHLORIDE 0.9% 1,000 ML IV STA (17:02)
[2020-04-13] MEDS ORDERED: KETOROLAC 15 MG/ML 1 ML VIAL IVP STA (17:02)
--- NOTE | 2020-04-13 17:09 | ED ---
Back Pain HPI - General Chief Complaint: Back Pain/Injury Stated Complaint: poss kidney stone Time Seen by Provider: 04/13/20 16:56 Source: patient, RN notes reviewed, old records reviewed Limitations: no limitations - History of Present Illness Initial Comments: Patient is a 30-year-old male with a history of kidney stones presents emergency department today with onset of left-sided flank pain starting at 2:00 this evening. Patient reports that he has had no fevers or chills. Denies any significant change in urination. Reports he was feeling nauseous as well. He did take a leftover pain medication from his last kidney stone that occurred on this year. Patient states that he's had no fevers or chills and denies any known changes of his urine. He reports the past 2 days he did have some struggling to urinate. - Related Data Home Medications Medication Instructions Recorded Confirmed Aspirin [Adult Low Dose Aspirin EC] 81 mg PO DAILY 12/26/18 01/16/19 Esomeprazole Magnesium [NexIUM] 20 mg PO DAILY 12/26/18 01/16/19 Losartan Potassium 100 mg PO HS 12/26/18 01/16/19 Simvastatin [Zocor] 40 mg PO HS 12/26/18 01/16/19 Metoprolol Tartrate 25 mg PO QAM 01/09/19 01/16/19 [place]-3 Fatty Acids [[place]-3] 1,000 mg PO DAILY 01/09/19 01/16/19 Previous Rx's Medication Instructions Recorded Hydrocodone/Acetaminophen [[place] 1 tab PO Q6HR PRN 3 Days #12 tab 01/17/19 5-325] Ketorolac [Toradol] 10 mg PO Q8HR #15 tab 11/30/19 Ondansetron Odt [Zofran Odt] 4 mg PO Q8HR PRN #10 tab 11/30/19 Tamsulosin [Flomax] 0.4 mg PO DAILY #7 cap 11/30/19 Acetaminophen-Codeine 300-30mg 1 tab PO Q6H PRN 3 Days #12 tablet 04/13/20 [Tylenol w/codeine #3] Ibuprofen [Motrin] 600 mg PO Q8HR PRN #20 tab 04/13/20 Ondansetron Odt [Zofran Odt] 4 mg PO Q8H PRN #12 tab 04/13/20 Tamsulosin [Flomax] 0.4 mg PO DAILY #10 cap 04/13/20 Allergies Allergy/AdvReac Type Severity Reaction Status Date / Time chicken derived Allergy Anaphylaxis Verified 04/13/20 16:52 levofloxacin [From Levaquin] Allergy Rash/Hives Verified 04/13/20 16:52 Poultry [[place]] Allergy Anaphylaxis Verified 04/13/20 16:52 Review of Systems ROS Statement: Those systems with pertinent positive or pertinent negative responses have been documented in the HPI. ROS Other: All systems not noted in ROS Statement are negative. Past Medical History Past Medical History: GERD/Reflux, Hyperlipidemia, Hypertension Additional Past Medical History / Comment(s): hiatal hernia, kidney stones History of Any Multi-Drug Resistant Organisms: None Reported Past Surgical History: Cholecystectomy Additional Past Surgical History / Comment(s): Colonoscopy, EGD Past Anesthesia/Blood Transfusion Reactions: No Reported Reaction Past Psychological History: No Psychological Hx Reported Smoking Status: Never smoker Past Alcohol Use History: Occasional Past Drug Use History: None Reported - Past Family History Mother Family Medical History: Cancer Father Family Medical History: Cancer General Exam - General Exam Comments Initial Comments: This is a 50-year-old male. Alert and oriented 3. No significant distress. Limitations: no limitations General appearance: alert, in no apparent distress Head exam: Present: atraumatic, normocephalic, normal inspection Eye exam: Present: normal appearance, PERRL, EOMI. Absent: scleral icterus, conjunctival injection, periorbital swelling ENT exam: Present: normal exam, mucous membranes moist Neck exam: Present: normal inspection. Absent: tenderness, meningismus, lymphadenopathy Respiratory exam: Present: normal lung sounds bilaterally. Absent: respiratory distress, wheezes, rales, rhonchi, stridor Cardiovascular Exam: Present: regular rate, normal rhythm, normal heart sounds. Absent: systolic murmur, diastolic murmur, rubs, gallop, clicks GI/Abdominal exam: Present: soft, normal bowel sounds. Absent: distended, tende rness, guarding, rebound, rigid Extremities exam: Present: normal inspection, full ROM, normal capillary refill. Absent: tenderness, pedal edema, joint swelling, calf tenderness Back exam: Present: normal inspection Course Vital Signs 04/13/20 04/13/20 04/13/20 16:48 17:15 19:38 Temperature 97.9 F Pulse Rate 54 L 51 L Respiratory 18 18 Rate Blood Pressure 190/112 150/106 159/93 O2 Sat by Pulse 100 97 Oximetry Medical Decision Making - Medical Decision Making 50-year-old male since restarted today with complaints of sided flank pain. At this time Patient does have evidence of hematuria. Computed tomography scan shows evidence of 5 mm UVJ stone. Patient's pain was well controlled after IV medications. Discussed following up with urology and will be discharged at this time. - Lab Data Result diagrams: 04/13/20 17:07 04/13/20 17:07 Lab Results 04/13/20 04/13/20 04/13/20 Range/Units 17:07 17:07 18:10 WBC 7.2 (3.8-10.6) k/uL RBC 5.21 (4.30-5.90) m/uL Hgb 15.2 (13.0-17.5) gm/dL Hct 45.2 (39.0-53.0) % MCV 86.9 (80.0-100.0) fL MCH 29.2 (25.0-35.0) pg MCHC 33.6 (31.0-37.0) g/dL RDW 12.4 (11.5-15.5) % Plt Count 176 (150-450) k/uL Neutrophils % 55 % Lymphocytes % 29 % Monocytes % 7 % Eosinophils % 4 % Basophils % 1 % Neutrophils # 4.0 (1.3-7.7) k/uL Lymphocytes # 2.1 (1.0-4.8) k/uL Monocytes # 0.5 (0-1.0) k/uL Eosinophils # 0.3 (0-0.7) k/uL Basophils # 0.1 (0-0.2) k/uL Sodium 140 (137-145) mmol/L Potassium 4.0 (3.5-5.1) mmol/L Chloride 107 (98-107) mmol/L Carbon Dioxide 24 (22-30) mmol/L Anion Gap 9 mmol/L BUN 17 (9-20) mg/dL Creatinine 1.00 (0.66-1.25) mg/dL Est GFR (CKD-EPI)AfAm >90 (>60 ml/min/1.73 sqM) Est GFR (CKD-EPI)NonAf 86 (>60 ml/min/1.73 sqM) Glucose 135 H (74-99) mg/dL Calcium 9.4 (8.4-10.2) mg/dL Total Bilirubin 0.8 (0.2-1.3) mg/dL AST 32 (17-59) U/L ALT 31 (4-49) U/L Alkaline Phosphatase 82 (38-126) U/L Total Protein 6.9 (6.3-8.2) g/dL Albumin 4.4 (3.5-5.0) g/dL Lipase 116 (23-300) U/L Urine Color Light Red Urine Appearance Cloudy (Clear) Urine pH 6.0 (5.0-8.0) Ur Specific [place] 1.027 (1.001-1.035) Urine Protein 1+ H (Negative) Urine Glucose (UA) Negative (Negative) Urine Ketones Negative (Negative) Urine Blood Moderate H (Negative) Urine Nitrite Negative (Negative) Urine Bilirubin Negative (Negative) Urine Urobilinogen 2.0 (<2.0) mg/dL Ur Leukocyte Esterase Trace H (Negative) Urine RBC >182 H (0-5) /hpf Urine WBC 3 (0-5) /hpf Ur Squamous Epith Cells <1 (0-4) /hpf Urine Bacteria Rare H (None) /hpf Urine Mucus Many H (None) /hpf - Radiology Data Radiology results: report reviewed Final Eyad left UVJ calculus resulting in moderate left-sided hydronephrosis and perinephric stranding left renal edema. Disposition Clinical Impression: Left renal stone Disposition: HOME SELF-CARE Condition: Good Instructions (If sedation given, give patient instructions): Renal Colic (ED) Additional Instructions: Please use medication as discussed. Please follow up with family doctor if symptoms have not improved over the next two days. Please return to the emergency room if your symptoms increase or worsen or for any other concerns. Prescriptions: Tamsulosin [Flomax] 0.4 mg PO DAILY #10 cap Ibuprofen [Motrin] 600 mg PO Q8HR PRN #20 tab PRN Reason: Pain Acetaminophen-Codeine 300-30mg [Tylenol w/codeine #3] 1 tab PO Q6H PRN 3 Days #12 tablet PRN Reason: Pain Ondansetron Odt [Zofran Odt] 4 mg PO Q8H PRN #12 tab PRN Reason: Nausea Is patient prescribed a controlled substance at d/c from ED?: Yes If prescribed controlled substance>3 days was MAPS reviewed?: Prescribed <3 Days If opioid is for acute pain is fill amount 7 days or less?: Yes If Rx opioid, was Start Talking consent form obtained?: Yes Referrals: Rogre Fine DO [Primary Care Provider] - 1-2 days Clifford Parker MD [STAFF PHYSICIAN] - 1-2 days Time of Disposition: 19:10
[2020-04-13 17:19] LABS: Basophils # (A) 0.1 k/uL (0-0.2); Basophils % (A) 1 %; Eosinophils # (A) 0.3 k/uL (0-0.7); Eosinophils % (A) 4 %; HCT 45.2 % (39.0-53.0); HGB 15.2 gm/dL (13.0-17.5); Lymphocytes # (A) 2.1 k/uL (1.0-4.8); Lymphocytes % (A) 29 %; MCH 29.2 pg (25.0-35.0); MCHC 33.6 g/dL (31.0-37.0); MCV 86.9 fL (80.0-100.0); Mean Platelet Volume 8.6; Monocytes # (A) 0.5 k/uL (0-1.0); Monocytes % (A) 7 %; Neutrophils % (A) 55 %; Platelet Count 176 k/uL (150-450); RBC 5.21 m/uL (4.30-5.90); RDW 12.4 % (11.5-15.5); WBC 7.2 k/uL (3.8-10.6)
--- NOTE | 2020-04-13 17:35 | XR ---
EXAMINATION TYPE: XR KUB DATE OF EXAM: 04/13/2020 COMPARISON: NONE HISTORY: Pain TECHNIQUE: Single supine KUB image of the abdomen is obtained FINDINGS: Distended small bowel with a few air-fluid levels noted is nonspecific and could reflect ileus. Corre late clinically and progress studies may be of value. Air is seen within the right hemicolon. Gas and fecal material is seen in non-distended colon. No convincing evidence for pneumoperitoneum. No unusual calcifications. The lung bases are clear. The osseous structures are intact. IMPRESSION: 1. Nonspecific
[2020-04-13 17:46] LABS: ALT 31 U/L (4-49); AST 32 U/L (17-59); African American GFR (CKD) >90 (>60 ml/min/1.73 sqM); Albumin 4.4 g/dL (3.5-5.0); Alkaline Phosphatase 82 U/L (38-126); Anion Gap 9 mmol/L; Blood Urea Nitrogen 17 mg/dL (9-20); Calcium 9.4 mg/dL (8.4-10.2); Carbon Dioxide 24 mmol/L (22-30); Chloride 107 mmol/L (98-107); Glucose 135 mg/dL (74-99); Non-African American GFR(CKD) 86 (>60 ml/min/1.73 sqM); Sodium 140 mmol/L (137-145); Total Bilirubin 0.8 mg/dL (0.2-1.3); Total Protein 6.9 g/dL (6.3-8.2)
[2020-04-13] MEDS ORDERED: SODIUM CHLORIDE 0.9% 1,000 ML IV ONE (17:55)
[2020-04-13 18:50] LABS: Appearance,Urine Cloudy (Clear); Bacteria,Urine Rare /hpf; Bilirubin,Urine Negative (Negative); Blood,Urine Moderate (Negative); Color,Urine Light Red; Glucose,Urine (UA) Negative (Negative); Ketones,Urine Negative (Negative); Leukocyte Esterase,Urine Trace (Negative); Mucus,Urine Many /hpf; Nitrite,Urine Negative (Negative); Protein,Urine 1+ (Negative); RBC,Urine >182 /hpf (0-5); Specific Gravity,Urine 1.027 (1.001-1.035); Squamous Epithelial Cell,Urine <1 /hpf (0-4); WBC,Urine 3 /hpf (0-5)
--- NOTE | 2020-04-13 18:54 | CT ---
EXAMINATION TYPE: CT abdomen pelvis wo con DATE OF EXAM: 04/13/2020 COMPARISON: 11/30/2019 HISTORY: LT flank pain. Hx renal stones. CT DLP: 768.8 mGycm Examination of the solid and hollow viscera is limited given the lack of contrast. FINDINGS: LUNG BASES: No evidence for nodule. No evidence for infiltrate. Hiatal hernia noted. LIVER/GB: The gallbladder is surgically absent. No space-occupying hepatic lesion. PANCREAS: No pancreatic mass identified. No inflammatory process seen. SPLEEN: No evidence for splenomegaly. No intrasplenic lesions seen. ADRENALS: No adrenal nodules identified. No evidence for thickening. KIDNEYS: 5 mm left UVJ calculus resulting in moderate left-sided hydronephrosis or perinephric strand ing and left renal edema. No right-sided nephrolithiasis. No renal masses detected. BOWEL: Appendix has a normal appearance. No evidence of bowel obstruction. No inflammatory process. Lymph nodes: No evidence for adenopathy greater than 1 cm. Abdominal aorta: Atheromatous changes seen. No evidence for aneurysm. Genital organs: No significant abnormality. Other: No significant abnormality. IMPRESSION: 5 mm left UVJ calculus resulting in moderate left-sided hydronephrosis or perinephric stranding and l eft renal edema.
[2020-04-13] MEDS ORDERED: TOBRAMYCIN 0.3% OPHTH DROPS 5 ML BTL LEFT EYE STA (19:03)
[2020-04-13] MEDS ORDERED: TAMSULOSIN 0.4 MG CAP.ER.24H PO STA (19:10)
[2020-04-13] MEDS ORDERED: ONDANSETRON 4 MG ODT STARTER PACK 2 TAB BTL PO STA (19:34)
[2020-04-13] MEDS ORDERED: ACET/COD 300 MG/30 MG STARTER PACK 6 TAB BTL PO STA (19:34)
[2020-04-13 19:42] VITALS: BP 159/93; PULSE 51
== END 2020-04-13 19:42 | disposition home or self-care (01) ==
LOC: EC 16:44
DX: N13.2 Hydronephrosis with renal and ureteral calculous obstruction (principal); K21.9 Gastro-esophageal reflux disease without esophagitis; I10 Essential (primary) hypertension; E78.5 Hyperlipidemia, unspecified; Z79.82 Long term (current) use of aspirin; Z79.899 Other long term (current) drug therapy; Z88.1 Allergy status to other antibiotic agents; Z91.018 Allergy to other foods
CPT/HCPCS: 36415; 80053; 83690; 85025; 81001; 74018; 74176; 99284; 96374; 96375; 96361 ×2; J2270; J1885; S0119

== ENCOUNTER → 2023-03-27 | Outpatient (CLI) | payer OTHER ==
--- NOTE | 2023-03-27 09:14 | XR ---
EXAMINATION TYPE: XR KUB DATE OF EXAM: 03/27/2023 7:39 AM INDICATION: Patient age:Male; 53 years old; Reason for study: N20.1 CALCULUS OF URETER; P COMPARISON: 04/13/2020 TECHNIQUE: One radiographic view of the abdomen was obtained. FINDINGS: The bowel gas pattern is nonspecific without dilated loops of small or large bowel. There i s no evidence for organomegaly or pneumoperitoneum. The osseous structures are intact. Pelvic phleb oliths are present. Fecal material and gas are demonstrated throughout the colon and rectum. Athero sclerosis of the arterial vasculature. IMPRESSION: 1. No renal calculi definitively visualized. 2. Nonspecific bowel gas pattern without radiographic evidence for acute process.
== END | disposition home or self-care (01) ==
LOC: RADXRMAIN 07:24
PROVIDERS: ATTEND Urology
DX: N20.1 Calculus of ureter (principal)
CPT/HCPCS: 74018